=== PATIENT | female | born 1985 | race Caucasian/White ===

== ENCOUNTER 2024-03-20 08:59 | Inpatient (IN) ==
[2024-03-20] MEDS ORDERED: Lidocaine 1% VIAL 10 MG/ML 30 ML VIAL INJ PRN (09:55)
[2024-03-20] MEDS ORDERED: Lactated Ringers 1000 ml BAG 1,000 ML IV SCH ×3 (10:00→18:00)
[2024-03-20] MEDS: Lactated Ringers 1000 ml BAG 1,000 ML IV ONE ×2 (10:40→13:45)
[2024-03-20] MEDS: Buffered Lidocaine 1% SYRIN 1 ml INTRADERM ONE (11:13)
[2024-03-20] MEDS: Prochlorperazine 5 mg/ml 2 ml VIAL (10 mg) IV PRN (11:20)
[2024-03-20] MEDS: Nalbuphine 10 MG/ML 1 ML VIAL IM PRN (11:20)
[2024-03-20 11:30] LABS: ABS Lymphocytes 1.1 10^3/uL (1.0-4.8); ABS Monocytes 0.8 10^3/uL (0.0-0.9); Hematocrit 38.4 % (35-45); Hemoglobin 13.1 g/dL (11.5-14.3); Mean Corpuscular Hemoglobin 31.8 pg (27-33); Mean Corpuscular Hgb Conc 34.2 g/dL (31-36); Mean Platelet Volume 9.5 fL (7.5-11.2); Platelet Count 221 10^3/uL (150-450); Red Blood Count 4.13 10^6/uL (3.63-4.92); Red Cell Distribution Width 13.3 % (12-17); White Blood Count 13.9 10^3/uL (3.8-11.8)
[2024-03-20 12:20] LABS: ALT 17 U/L (7-52); Albumin 3.4 g/dL (3.2-5.2); Albumin/Globulin Ratio 1.5 (1-3); Alkaline Phosphatase 195 U/L (35-149); Anion Gap 11 mmol/L (2-16); Blood Urea Nitrogen 8 mg/dL (6-24); CO2 Carbon Dioxide 20 mmol/L (22-32); Calcium 8.5 mg/dL (8.6-10.3); Chloride 97 mmol/L (101-111); Creatinine, Serum 0.64 mg/dL (0.51-0.95); Globulin 2.2 g/dL (2-4); Glucose 80 mg/dL (70-100); Sodium 128 mmol/L (135-145); Total Bilirubin 0.3 mg/dL (0.2-1.0); Total Protein 5.6 g/dL (6.4-8.9); eGFR CKD-EPI 115.9 (>60)
[2024-03-20] MEDS ORDERED: OBEPIDURAL (200 ML) 200 ML EPIDURAL ONE (13:17)
[2024-03-20] MEDS ORDERED: Lidocaine 1.5% EPI 1:200,000 30 ML SDV ONE (13:17)
[2024-03-20] MEDS ORDERED: Phenylephrine 40 mcg/mL 10mL (400mcg) SYRINGE ONE (13:32)
[2024-03-20] MEDS ORDERED: Sodium Citrate/Citric Acid LIQ 15 ML UDC PO PRN (14:03)
[2024-03-20] MEDS ORDERED: Phenylephrine 40 mcg/mL 10mL (400mcg) SYRINGE IV PUSH PRN ×2 (14:03)
[2024-03-20] MEDS: OBEPIDURAL (200 ML) 200 ML EPIDURAL SCH (14:30)
[2024-03-20 15:36] LABS: Urine Appearance Clear; Urine Bilirubin Negative (Negative); Urine Blood 2+ (Negative); Urine Color Yellow; Urine Glucose Negative (Negative); Urine Ketones 1+ (Negative); Urine Nitrite Negative (Negative); Urine Protein Negative (Negative); Urine Specific Gravity 1.015 (1.002-1.030); Urine Urobilinogen Negative (Negative); Urine pH 6.5 (5.0-8.0)
[2024-03-20 15:43] LABS: Urine Bacteria Absent /HPF (Absent); Urine Red Blood Cell 3+(>10/hpf) /HPF (0-Trace); Urine Squamous Epithelial Cell Present /HPF (Absent); Urine White Blood Cell Trace(0-5/hpf) /HPF (0-Trace)
[2024-03-20 15:59] LABS: Urine Benzodiazepine Screen None Detected (None Detect); Urine Cannabinoids Screen None Detected (None Detect); Urine Opiates Screen None Detected (None Detect)
[2024-03-20] MEDS: Oxytocin in LR 20,000 MILLI.UNIT/1,000 ML BAG IV ONE (16:32)
[2024-03-20] MEDS ORDERED: Tranexamic Acid 1 GM/100ML BAG 0 MG/0 ML BAG IV ONE (16:36)
[2024-03-20] MEDS ORDERED: Glycerin ADULT 2.4 gm SUPP PR PRN (17:42)
[2024-03-20] MEDS ORDERED: Oxytocin in LR 20,000 MILLI.UNIT/1,000 ML BAG IV SCH (17:45)
[2024-03-20] MEDS: Witch Hazel PAD JAR TOPICAL PRN (19:09)
[2024-03-20] MEDS: Dibucaine 1% OINT 28.35 GM TUBE PR PRN (19:09)
[2024-03-21 07:51] LABS: ABS Lymphocytes 1.5 10^3/uL (1.0-4.8); ABS Monocytes 1.2 10^3/uL (0.0-0.9); ABS Neutrophils 9.6 10^3/uL (1.5-7.6); Eosinophil % 0.1 %; Hematocrit 30.9 % (35-45); Hemoglobin 10.7 g/dL (11.5-14.3); Mean Corpuscular Hemoglobin 31.7 pg (27-33); Mean Corpuscular Hgb Conc 34.6 g/dL (31-36); Mean Corpuscular Volume 91.6 fL (80-97); Mean Platelet Volume 9.4 fL (7.5-11.2); Platelet Count 205 10^3/uL (150-450); Red Blood Count 3.37 10^6/uL (3.63-4.92); Red Cell Distribution Width 13.7 % (12-17); White Blood Count 12.3 10^3/uL (3.8-11.8)
[2024-03-22 08:18] VITALS: BP 121/72
== END 2024-03-22 17:29 | disposition home or self-care (01) | DRG 806 ==
LOC: MCHOBOUT 08:59 → MCHOB 09:25
PROVIDERS: ADMIT Advanced Practice Midwife; ATTEND Advanced Practice Midwife